=== PATIENT | female | born 1965 | race African-American/Black ===

== ENCOUNTER → 2017-01-07 | Outpatient (CLI) | payer OTHER ==
[~2017-01-07] MED LIST: ADVAIR 2501 DISK W/D; ADVAIR 500-501 EACH IH; ALBUTEROL MININEB NEB; ALBUTEROL17 GM; AMLODIPINE BESYL5 MG PO; ASPIRIN81 M2 PO; BENZONATATE PO; CATAPRES-TTS-10.1 MG PO; CLONIDINE; FISH OIL 1,2001 EAC3 PO; FLONASE ALLERG9.9 ML; GLUCOSAMINE &1 EAC1; IBUPROFEN800 MG PO; IRON325 ( 651 PO; KCL; KCL PO; LASIX; LASIX80 MG PO; LODINE; MAPAP ARTHRITI650 M1 PO; MAXZIDE-25 MG1 UDTAB; PEN-VEE K PO; PREMPRO 0.45-11 EACH PO; PRINIVIL20 M1 PO; PROTONIX PO; VICODIN 5/500 T1 TAB PO
== END | disposition home or self-care (01) ==
LOC: CLAB 09:35
DX: E66.01 Morbid (severe) obesity due to excess calories (principal)
CPT/HCPCS: 36415; 84443; 86677

== ENCOUNTER → 2017-01-25 | Outpatient (CLI) | payer OTHER ==
--- NOTE | ~2017-01-25 | CR63 ---
[facility] A Service of [facility] & [facility] RADIOLOGY TEXT RESULTS PATIENT: JUDI SANTO LOCATION: [facility] : 67 UNIT #: [id number] AGE: [address]: Yohan Moctezuma III, MD SEX: F ORDER DR: [id number] [facility] [address] [place], [place] [address] [id number] O MR#: [id number] #: [id number] NAME: JUDI SANTO : 1965 SEX: F STUDY DATE/TIME: 01/25/2017 8:47 UNIT: [facility] ROOM: STUDY DESCRIPTION: CR Chest 2 View Attending Physician: oYhan Moctezuma III, M.D. Referring Physician: Yohan Moctezuma III, M.D. Ordering Physician: Yohan Moctezuma III, M.D. Primary Care Physician: Eduardo Negron M.D. MEDICAL IMAGING REPORT This report is preliminary unless electronic signature is present EXAM 2 views of the chest. COMPARISON August 01, 2009, April 03, 2005, March 29, 2005. INDICATION 51-year-old female. Preop respiratory exam prior to gastric band placement and possible paraesophageal hernia repair. FINDINGS Exam is limited by patient body habitus causing attenuation. The lungs are clear. There is no evidence of pleural effusion or pneumothorax. Cardiomediastinal silhouette is within normal limits. Mild multilevel anterior osteophyte formation of the thoracic vertebral bodies. IMPRESSION No acute radiographic abnormality of the chest. Normal heart size. Dictated by... Stanislaw Avalos M.D. THIS IS AN ELECTRONICALLY VERIFIED REPORT Stanislaw Avalos M.D. at 01/30/2017 6:12 PM RISHABH/natalie TD: 01/25/2017 18:52 JOB #: [id number] MEDICAL IMAGING REPORT Page 1 of 1 COPY
--- NOTE | ~2017-01-25 | EKG ---
PATIENT: JUDI SANTO UNIT #: [id number] Ventricular Rate: 61 BPM Atrial Rate: 61 BPM P-R Interval: 192 ms QRS Duration: 92 ms Q-T Interval: 456 ms QTC Calculation(Bezet): 459 ms P [place]: 11 degrees Calculated R [place]: 7 degrees Calculated T [place]: 18 degrees Diagnosis Line: Normal sinus rhythm Diagnosis Line: Nonspecific T wave abnormality Diagnosis Line: Abnormal ECG Diagnosis Line: No previous ECGs available Diagnosis Line: Confirmed by DENIA LANGLEY MD ([id number]) on Diagnosis Line: 01/25/2017 11:38:56 AM INTERPRETING MD: SHIVAM GONZALEZ
--- NOTE | ~2017-01-25 | CR97 ---
[facility] A Service of [facility] RADIOLOGY TEXT RESULTS PATIENT: JUDI SANTO LOCATION: [facility] : 67 UNIT #: [id number] AGE: [address]: Yohan Moctezuma III, MD SEX: F ORDER DR: [id number] [id number] [place], [place] [address] [id number] O MR#: [id number] Acc #: [id number] NAME: JUDI SANTO : 1965 SEX: F STUDY DATE/TIME: 01/25/2017 9:15 UNIT: [facility] ROOM: STUDY DESCRIPTION: CR Esophagram Attending Physician: Yohan Moctezuma III, M.D. Referring Physician: Yohan Moctezuma III, M.D. Ordering Physician: Yohan Moctezuma III, M.D. Primary Care Physician: Eduardo Negron M.D. MEDICAL IMAGING REPORT This report is preliminary unless electronic signature is present EXAM Single contrast barium esophagram INDICTIONS Preoperative examination prior to laparoscopic banding procedure. TECHNIQUE Patient was administered thin barium and multiple fluoroscopic images were obtained. FINDINGS The thoracic esophagus is of normal caliber. There is no evidence of stricture or mass lesion. Esophageal motility appeared within normal limits. No hiatal hernia was seen. No reflux was identified. Total fluoroscopy time 0.2 minutes. Total of 14 fluoroscopic images were obtained. IMPRESSION Normal single contrast barium esophagram. Dictated by... Hue Parker M.D. THIS IS AN ELECTRONICALLY VERIFIED REPORT Hue Parker M.D. at 01/28/2017 4:54 PM AFF/anoop TD: 01/28/2017 14:24 JOB #: [id number] [facility] A Service of [facility] RADIOLOGY TEXT RESULTS PATIENT: JUDI SANTO LOCATION: [facility] : 67 UNIT #: [id number] AGE: [address]: Yohan Moctezuma III, MD SEX: F ORDER DR: MEDICAL IMAGING REPORT Page 1 of 1 COPY
[2017-01-25 10:01] LABS: HEMATOCRIT 36.1 % (35.0-45.0); MEAN CELL VOLUME 95.2 FL (83-96); MEAN CORPUSCULAR HEMOGLOBIN 31.8 PG (28-34); MEAN CORPUSCULAR HGB CONC 33.3 g/dL (30-36); MEAN PLATELET VOLUME 7.3 FL (6.5-11.5); RED BLOOD COUNT 3.79 X10e (3.90-5.30); RED CELL DISTRIBUTION WIDTH 13.2 % (11.0-15.5); WHITE BLOOD COUNT 4.9 X10e3 (4.0-10.5)
[2017-01-25 11:01] LABS: ALBUMIN SERUM 3.8 g/dL (3.5-5.0); BILIRUBIN,TOTAL 0.3 mg/dL (0.2-2.0); CALCIUM SERUM 8.8 mg/dL (8.4-10.2); CREATININE SERUM 0.8 mg/dL (0.6-1.4); GLOM FILT RATE Estimated 99.7 mL/min (>60); POTASSIUM 4.2 mmol/L (3.5-5.1); PROTEIN TOTAL SERUM 6.7 g/dL (6.0-8.3)
== END | disposition home or self-care (01) ==
LOC: CRAD 08:27 → CAMB 09:30
PROVIDERS: Surgery
DX: Z01.818 Encounter for other preprocedural examination (principal)
CPT/HCPCS: 36415; 71020; 74220; 80053; 80061; 84443; 85027; 93005